=== PATIENT | female | born 2005 | race Two or more races ===

== ENCOUNTER 2024-04-18 02:26 | Emergency (ER) | payer OTHER ==
[~2024-04-18] VITALS: Ht 175.3 cm; Wt 91.0 kg
--- NOTE | 2024-04-18 03:26 | ED.PDOC ---
TAX COMPLIANCE REPRESENTATIVE HPI Comments 19-year-old female came to emergency room due to vaginal bleeding. Patient is a , she has been having vaginal bleeding for over a month, however for the past few days noted worsening of vaginal bleeding. Few hours ago, she started having sharp lower abdominal cramping pain, with worsening vaginal bleeding with clots, consuming 6 pads the past 2 hours. Denies any fever. Last ultrasound done was Mar 24, 2024 Chief Complaint: Vaginal bleeding Time Seen by MD: 03:24 Reviewed Notes: Nurses Notes Information Source: Patient Timing: Weeks Prehospital treatment: None Severity: Moderate Vaginal Discharge: None Vaginal Lesions: None Bleeding Quality: Dark, Clotted Onset Of Mass/Bleeding: Spontaneous Last Consensual Crooks: Unknown Associated Signs and Symptoms: Vaginal Bleeding, Abdominal Pain Review of Systems REVIEW OF SYSTEMS: No fever, no chills, or fatigue HEENT: No sore throat, no earache, no congestion, no neck pain. Cardiac: No chest pain. No palpitations. Lungs: No shortness of breath, no cough. GI: No nausea, no vomiting, no diarrhea, no constipation, (+)abdominal pain : No dysuria, frequency, or urgency. No hematuria. (+) vaginal bleeding Musculoskeletal: No joint pain , no joint swelling, no extremity edema. Skin: No rash, no itching. Neuro: No headache, no dizziness, no weakness Vital Signs Vital Signs Date Time Temp Pulse Resp B/P (MAP) Pulse Ox O2 Delivery O2 Flow Rate FiO2 04/18/24 05:23 85 18 125/82 04/18/24 02:30 98.5 100 Physical Exam General: Awake, alert and oriented. No acute distress. Skin: Skin in warm, dry and intact. Appropriate color for ethnicity. Nailbeds pink with no cyanosis. HEENT: The head is normocephalic and atraumatic. Conjunctivae are clear without exudates or hemorrhage. Sclera is non-icteric. EOM are intact. No signs of nystagmus. Eyelids are normal in appearance without swelling or lesions. Oral mucosa is pink and moist Neck: The neck is supple with normal range of motion. No JVD. Cardiac: Heart rate and rhythm are normal. No murmurs, gallops, or rubs are auscultated. Respiratory: No signs of respiratory distress. Lung sounds are clear in all lobes bilaterally without rales, ronchi, or wheezes. Abdominal: Abdomen is soft, non-tender without distention. Bowel sounds are present and normoactive in all four quadrants. : (Junior Systems Engineer Present) External Genitalia- labia, clitoris, urethral orifice & introitus all nl, Vaginal bleeding with large clot Extremities: Upper and lower extremities are atraumatic in appearance without deformity or edema. Neurological: The patient is awake, alert and oriented to person, place, and time with normal speech. Speech is clear. There is no facial asymmetry. Psychiatric: Appropriate mood and affect. Good judgement and insight. No visual or auditory hallucinations. 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 Was a procedure done?: No Differential Diagnosis (TANKROOM WORKER) Vaginal Bleeding: - Threatened, Blood Loss Anemia, Menorrhagia, Menometrorrhagia, Menstrual Bleeding, UTI X-Ray, Labs, Meds, VS Vital Signs Date Time Temp Pulse Resp B/P (MAP) Pulse Ox O2 Delivery O2 Flow Rate FiO2 04/18/24 05:23 85 18 125/82 04/18/24 02:30 98.5 85 16 108/48 (68) 100 Lab Test 04/18/24 05:18 04/18/24 04:20 04/18/24 03:25 Range/Units Hemoglobin Pending 10.9 L 12.2-16.2 g/dL Hematocrit Pending 31.8 L 36.0-46.0 % Urine Color Light-red Yellow Urine Clarity Ex.turbid Clear Urine pH 6.0 5.0-9.0 Urine Specific Merlin 1.020 1.001-1.035 Urine Protein 2+ H Negative Urine Ketones Negative Negative Urine Blood 3+ H Negative /uL Urine Nitrite Negative Negative Urine Bilirubin Negative Negative Urine Urobilinogen Normal Negative mg/dL Urine Leukocyte Esterase 1+ Negative /uL Urine RBC 19972 0 - 4 /hpf Urine WBC 297 0 - 5 /hpf Urine WBC Clumps Present None Seen /hpf Urine Squamous Epithelial Cells None seen <5 /hpf Urine Bacteria None seen None Seen /hpf Urine Glucose Normal Normal mg/dL White Blood Count 7.5 4.4-10.8 10^3/uL Red Blood Count 3.40 L 4.0-5.20 10^6/uL Mean Corpuscular Volume 93.6 80.0-100.0 fL Mean Corpuscular Hemoglobin 32.2 H 28.0-32.0 pg Mean Corpuscular Hemoglobin Concent 34.4 32.0-36.0 g/dL Red Cell Distribution Width 12.7 11.8-14.3 % Platelet Count 271 140-450 10^3/uL Mean Platelet Volume 7.4 6.9-10.8 fL Neutrophils (%) (Auto) 58.5 37.0-80.0 % Lymphocytes (%) (Auto) 32.0 10.0-50.0 % Monocytes (%) (Auto) 6.3 0.0-12.0 % Eosinophils (%) (Auto) 2.8 0.0-7.0 % Basophils (%) (Auto) 0.4 0.0-2.0 % Neutrophils # (Auto) 4.4 1.6-8.6 10 ^3/uL Lymphocytes # (Auto) 2.4 0.4-5.4 10 ^3/uL Monocytes # (Auto) 0.5 0-1.3 10 ^3/uL Eosinophils # (Auto) 0.2 0-0.8 10 ^3/uL Basophils # (Auto) 0 0-0.2 10 ^3/uL Nucleated Red Blood Cells 0.1 % Sodium Level 138 136-145 mmol/L Potassium Level 4.4 3.5-5.1 mmol/L Chloride Level 108 H 98-107 mmol/L Carbon Dioxide Level 25 20-31 mmol/L Anion Gap 5 5-15 Blood Urea Nitrogen 8 L 9-23 mg/dL Creatinine 0.73 0.550-1.02 mg/dL Glomerular Filtration Rate Calc 121 >90 mL/min BUN/Creatinine Ratio 11.0 10.0-20.0 Serum Glucose 99 74-106 mg/dL Calcium Level 9.9 8.7-10.4 mg/dL Total Bilirubin 0.4 0.2-1.0 mg/dL Aspartate Amino Transferase (AST) 14 13-40 U/L Alanine Aminotransferase (ALT) 13 7-40 U/L Alkaline Phosphatase 48 46-116 U/L Total Protein 7.2 5.7-8.2 g/dL Albumin 4.5 3.2-4.8 g/dL Beta HCG, Quantitative 3661.8 H 1.5-4.2 mIU/mL Current Medications Medications (Trade) Dose Ordered Sig/Hortensia Route Start Time Stop Time Status Last Admin Ketorolac Tromethamine (Toradol Injection) 60 mg ONCE ONCE IM 04/18/24 03:30 04/18/24 03:31 DC 04/18/24 04:00 Morphine Sulfate 2 mg ONCE ONCE IV 04/18/24 05:15 04/18/24 05:16 DC 04/18/24 05:23 Ondansetron HCl (Zofran) 4 mg ONCE ONCE IV 04/18/24 05:15 04/18/24 05:16 DC 04/18/24 05:23 Time of 1ST Reevaluation: 03:21 Reevaluation 1ST: Unchanged Patient Education/Counseling: Diagnosis, Treatment Family Education/Counseling: Diagnosis, Treatment Departure 1 Departure Time of Disposition: 05:42 Impression: Primary Impression: Vaginal bleeding Disposition: 30 STILL A PATIENT Condition: Stable Comments 19 year old female with heavy vaginal bleeding. Ongoing x 1 month. Was told she has of unknown location vs possible miscarriage one month ago. Has had no follow up since then. Beta HCG currently 3661. Patient has gone through 3 pads per hour. Pending Ultrasound. Will sign out to oncoming provider. Extensive evaluation was performed in attempt to identify or rule out: (See differential diagnosis section) The following tests were ordered, and results were reviewed by me: (See diagnostic results section) The following test were independently interpreted by me: N/A I reviewed and agreed with the following test results read by other providers: N/A I reviewed the following notes from the pt's past medical encounters: (None available at this time) Additional information was gathered from interviewing the following independent historians: N/A Discussion of management or test interpretation with external physician/other qualified health assisted living care manager: N/A Addressed an acute or chronic illness that poses a threat to life or bodily function: Heavy vaginal bleeding, r/o ectopic Critical Care Note Critical Care Time?: No Stability Stability form required: No I personally scribed for NORRIS OSORIO MD ([email or web address]) on 04/18/24 at 03:26. Electronically submitted by Herminio Gamino ([facility]). NORRIS OSORIO MD Apr 18, 2024 03:26
[2024-04-18] MEDS: KETOROLAC TROMETH 60MG/2ML VIAL IM ONE (04:00)
[2024-04-18 04:01] LABS: Basophils # (auto) 0 10 ^3/uL (0-0.2); Basophils % (auto) 0.4 % (0.0-2.0); Eosinophils # (auto) 0.2 10 ^3/uL (0-0.8); Eosinophils % (auto) 2.8 % (0.0-7.0); Hematocrit 31.8 % (36.0-46.0); Hemoglobin 10.9 g/dL (12.2-16.2); Lymphocytes # (auto) 2.4 10 ^3/uL (0.4-5.4); Mean Corpuscular Hemoglobin 32.2 pg (28.0-32.0); Mean Corpuscular Hgb Conc. 34.4 g/dL (32.0-36.0); Mean Corpuscular Volume 93.6 fL (80.0-100.0); Monocytes # (auto) 0.5 10 ^3/uL (0-1.3); Monocytes % (auto) 6.3 % (0.0-12.0); Neutrophils # (auto) 4.4 10 ^3/uL (1.6-8.6); Neutrophils % (auto) 58.5 % (37.0-80.0); Nucleated Red Blood Cells % 0.1 %; Platelet Count (auto) 271 10^3/uL (140-450); Red Cell Distribution Width 12.7 % (11.8-14.3); White Blood Cell 7.5 10^3/uL (4.4-10.8)
[2024-04-18 04:23] LABS: Alanine Aminotransferase 13 U/L (7-40); Albumin 4.5 g/dL (3.2-4.8); Alkaline Phosphatase 48 U/L (46-116); Anion Gap 5 (5-15); Aspartate Aminotransferase 14 U/L (13-40); Calcium 9.9 mg/dL (8.7-10.4); Carbon Dioxide 25 mmol/L (20-31); Glucose 99 mg/dL (74-106); Potassium 4.4 mmol/L (3.5-5.1); Sodium 138 mmol/L (136-145)
[2024-04-18 04:24] LABS: Bilirubin, Total 0.4 mg/dL (0.2-1.0); Blood Urea Nitrogen 8 mg/dL (9-23); Chloride 108 mmol/L (98-107); Total Protein 7.2 g/dL (5.7-8.2)
[2024-04-18 04:25] LABS: Urine Bacteria None Seen /hpf (None Seen)
[2024-04-18 04:33] LABS: Urine Blood 3+ /uL (Negative); Urine Clarity Ex.Turbid (Clear); Urine Color Light-Red (Yellow); Urine Protein, UAD 2+ (Negative); Urine Squamous Epithelial Cell None Seen /hpf (<5); Urine Urobilinogen Normal (Negative); Urine WBC 297 /hpf (0 - 5); Urine WBC Clumps PRESENT /hpf (None Seen)
[2024-04-18] MEDS: MORPHINE SULFATE INJ 2 MG/ml SYRG IV ONE (05:23)
[2024-04-18] MEDS: ONDANSETRON HCL 4 MG/2 ML VIAL IV ONE (05:23)
[2024-04-18 06:13] LABS: Hematocrit 31.4 % (36.0-46.0); Hemoglobin 10.8 g/dL (12.2-16.2)
[2024-04-18 07:30] VITALS: TEMP 98.4
--- NOTE | 2024-04-18 07:35 | DVH ---
EXAM: US First Trimester , Transabdominal and Transvaginal CLINICAL INDICATION: vaginal bleeding TECHNIQUE: Real-time transabdominal and transvaginal obstetrical ultrasound of the maternal pelvis a nd a first trimester with image documentation. Transvaginal imaging was used for better ev aluation of the fetus and adnexa. COMPARISON: None FINDINGS: GESTATION: No intrauterine . PLACENTA/AMNIOTIC FLUID: Cannot be adequately evaluated due to the early gestational age. UTERUS/CERVIX: Unremarkable. No myometrial mass. The uterus measures 11 x 4 x 6 cm. The endometri al stripe measures 0.27 cm in thickness. OVARIES: Leftovary 3, 2, 2. No mass. The right ovary measures 3 x 2 x 2 cm. FREE FLUID: No free fluid. OTHER FINDINGS: . . . IMPRESSION: No intrauterine . Beta hcg 3661. The ectopic cannot be excluded. Clinical correlat ion is recommended repeat pelvic US in 10 days recommended. HS:Y
[2024-04-18 09:15] VITALS: PULSE 98; RESP 12; O2SAT 98
[2024-04-18 12:00] VITALS: BP 111/63; PULSE 87; RESP 14; O2SAT 98
== END 2024-04-18 12:40 | disposition home or self-care (01) ==
LOC: ER 02:26
DX: N92.1 Excessive and frequent menstruation with irregular cycle (principal)
CPT/HCPCS: 36415; 76801; 76817; 80053; 81001; 84702; 85014; 85018; 85025; 86850; 86900; 86901; 96372; 96374; 96375; 99285; J1885; J2270; J2405